=== PATIENT | female | born 1980 | race Hispanic/Latino ===

== ENCOUNTER 2023-04-13 11:36 | Emergency (ER) | payer OTHER ==
--- OUTSIDE RECORDS SUMMARY | 2023-04-13 11:39 | XMS REPORT | Continuity of Care Document ---
:1980 Author Organization [facility] t Address [address] [place] [place] [address] Care Team Providers Name Role Phone Fabio HUGHESJAMESDarioLitzy C Primary Care Physician [phone] RADIOLOGY Attending Clinician Unavailable Cindy SHEARER, Roya K.H. Attending Clinician ROYA WHITE.H. Attending Clinician Unavailable Doctor Unassigned, [place] Attending Clinician Unavailable Lia Domingo RN Attending Clinician Unavailable GLEN OLVERA Attending Clinician Unavailable Glen Mckeon Attending Clinician Odette Duque RN Attending Clinician Unavailable GLEN OLVERA Admitting Clinician Unavailable Payers Payer Name Policy Type Policy Number Effective Date Expiration Date S [place] MEDICAID MARY GRACE PENDING 2020 PENDING 00:00:00 Problems Condition Condition Condition Status Onset Resolution Last Treating Co mments Source Name Details Category Date Date Treatment Clinician Date History of History of Disease Active 2016-07 U tomas depression depression 0-03 it y of 00:00: [place] 00 Medical Branch History of History of Disease Active 2016-07 Kamini marin diabetes diabetes 0-03 ity of mellitus mellitus 00:00: [address] Contracept Contracept Disease Active 2016-07 U nivers angie angie 0-03 [place] [facility] Boil of Boil of Disease Active 2016-07 Univers buttock buttock 0-03 ity of 00:00: [address] Breast Breast Disease Active 2015-07 Univers complaint complaint 0-26 ity of 00:00: [address] Well woman Well woman Disease Active U nivers exam exam 7 ity of 00:00: [address] S/P tubal S/P tubal Disease Active Uni vers ligation ligation 01-25 ity of 00:00: [place] [facility] Obese Obese Disease Active Univers 01-25 ity of 00:00: [address] Allergies, Adverse Reactions, Alerts Allergy Allergy Status Severity Reaction(s) Onset Inactive Treating Comm ents Source Name Type Date Date Clinician NO KNOWN Drug Active Univers ALLERGIE Class ity of S [facility] Social History Social Habit Start Date Stop Date Quantity Comments Source Sexual [facility] to 2020-10-24 2020-11-23 Not sure [facility] SARS-CoV-2 (event) 00:00:00 09:50:00 [facility] History of Social 2020-10-08 2020-10-08 Univers ity of function 00:00:00 00:00:00 [facility] Alcohol intake 2020-06-27 2020-06-27 0 /d University 00:00:00 00:00:00 [facility] Tobacco use and 2016-01-26 2016-01-26 Smokeless Universit y of exposure 00:00:00 00:00:[address] tobacco non-user [facility] Sex Assigned At [birth year] Universit y of 00:00:00 00:00:00 [facility] Smoking Status Start Date Stop Date Source Never smoked tobacco [facility] Medications Ordered Filled Start Stop Current Ordering Indication Dosage Frequency Signature Comments Components Source Medication Medication Date Date Medication? Clinician (SIG) Name Name albuterol 2019- 2020- No 2{puff} 2 Puff, U nivers (VENTOLIN) 2-20 12-20 Inhalation it y of inhaler 2 01:45[place] 00:56 [place] :[place] dose, [facility] 06/27/20 Branch at 1945, AIDAN
Is this order for a patient with suspected or confirmed COVID-19 infection? Yes ibuprofen 2019-07 2020- No 800mg 800 mg, Uni vers (IBU) 2-20 - Oral, ity of tablet 800 00:15: 00:06 ONCE, 1 [place] as mg 00 :00 dose, [facility] 06/27/20 Branch at 1815, AIDAN albuterol 2019-07 Yes [id number] 2{puff} Inhale 2 Univers 90 2-19 Puffs ity of mcg/actuati 00:00: every 4 [place] as on inhaler 00 (four) Medical hours as Branch needed for Wheezing or Shortness of Breath. albuterol 2019-07 Yes [id number] 2{puff} Inhale 2 Univers 90 2-19 Puffs ity of mcg/actuati 00:00: every 4 Hiro as on inhaler 00 (four) Medical hours as Branch needed for Wheezing or Shortness of Breath. albuterol 2019-07 Yes [id number] 2{puff} Inhale 2 Univers 90 2-19 Puffs ity of mcg/actuati 00:00: every 4 Hiro as on inhaler 00 (four) Medical hours as Branch needed for Wheezing or Shortness of Breath. albuterol 2019-07 Yes [id number] 2{puff} Inhale 2 Univers 90 2-19 Puffs ity of mcg/actuati 00:00: every 4 [place] on inhaler 00 (four) Medical hours as Branch needed for Wheezing or Shortness of Breath. albuterol 2019-07 Yes [id number] 2{puff} Inhale 2 Univers 90 2-19 Puffs ity of mcg/actuati 00:00: every 4 [place] as on inhaler 00 (four) Medical hours as Branch needed for Wheezing or Shortness of Breath. albuterol 2019-07 Yes [id number] 2{puff} Inhale 2 Univers 90 2-19 Puffs ity of mcg/actuati 00:00: every 4 [place] as on inhaler 00 (four) Medical hours as Branch needed for Wheezing or Shortness of Breath. benzonatate 2019-07 Yes [id number] 100mg Take 1 Univers 100 mg 2-19 capsule by ity of capsule 00:00: mouth 3 [place] 00 (three) Medical times Branch daily as needed for Cough. ondansetron 2019-07 Yes [id number] 4mg Take 1 Univers (ZOFRAN 2-19 tablet by ity of ODT) 4 mg 00:00: mouth [place] disintegrat 00 every 8 Medic al ing tablet (eight) Branch hours as needed for Nausea and Vomiting (N/V). albuterol 2019-07 Yes [id number] 2{puff} Inhale 2 Univers 90 2-19 Puffs ity of mcg/actuati 00:00: every 4 [place] on inhaler 00 (four) Medical hours as Branch needed for Wheezing or Shortness of Breath. benzonatate 2019-07 Yes [id number] 100mg Take 1 Univers 100 mg 2-19 capsule by ity of capsule 00:00: mouth 3 [place] 00 (three) Medical times Branch daily as needed for Cough. ondansetron 2019-07 Yes [id number] 4mg Take 1 Univers (ZOFRAN 2-19 tablet by ity of ODT) 4 mg 00:00: mouth [place] disintegrat 00 every 8 Medic al ing tablet (eight) Branch hours as needed for Nausea and Vomiting (N/V). albuterol 2019-07 Yes [id number] 2{puff} Inhale 2 Univers 90 2-19 Puffs ity of mcg/actuati 00:00: every 4 [place] as on inhaler 00 (four) Medical hours as Branch needed for Wheezing or Shortness of Breath. benzonatate 2019-07 Yes [id number] 100mg Take 1 Univers 100 mg 2-19 capsule by ity of capsule 00:00: mouth 3 [place] 00 (three) Medical times Branch daily as needed for Cough. ondansetron 2019-07 Yes [id number] 4mg Take 1 Univers (ZOFRAN 2-19 tablet by ity of ODT) 4 mg 00:00: mouth [place] disintegrat 00 every 8 Medic al ing tablet (eight) Branch hours as needed for Nausea and Vomiting (N/V). albuterol 2019-07 Yes [id number] 2{puff} Inhale 2 Univers 90 2-19 Puffs ity of mcg/actuati 00:00: every 4 [place] as on inhaler 00 (four) Medical hours as Branch needed for Wheezing or Shortness of Breath. benzonatate 2019-07 Yes [id number] 100mg Take 1 Univers 100 mg 2-19 capsule by ity of capsule 00:00: mouth 3 [place] 00 (three) Medical times Branch daily as needed for Cough. ondansetron 2019-07 Yes [id number] 4mg Take 1 Univers (ZOFRAN 2-19 tablet by ity of ODT) 4 mg 00:00: mouth [place] disintegrat 00 every 8 Medic al ing tablet (eight) Branch hours as needed for Nausea and Vomiting (N/V). benzonatate 2019-07- No [id number] 100mg Take 1 Univers 100 mg 2-19 04-01 capsule by ity of capsule 00:00: 00:00 mouth 3 [place] 00 :00 (three) Medical times Branch daily as needed for Cough. ondansetron 2019-07- No [id number] 4mg Take 1 Univers (ZOFRAN 2-19 04-01 tablet by ity of ODT) 4 mg 00:00: 00:00 mouth [place] disintegrat 00 :00 every 8 Medic al ing tablet (eight) Branch hours as needed for Nausea and Vomiting (N/V). benzonatate 2019-07- No [id number] 100mg Take 1 Univers 100 mg 2-19 04-01 capsule by ity of capsule 00:00: 00:00 mouth 3 [place] 00 :00 (three) Medical times Branch daily as needed for Cough. ondansetron 2019-07- No [id number] 4mg Take 1 Univers (ZOFRAN 2-19 04-01 tablet by ity of ODT) 4 mg 00:00: 00:00 mouth [place] disintegrat 00 :00 every 8 Medic al ing tablet (eight) Branch hours as needed for Nausea and Vomiting (N/V). benzonatate 2019-07- No [id number] 100mg Take 1 Univers 100 mg 2-19 04-01 capsule by ity of capsule 00:00: 00:00 mouth 3 [place] 00 :00 (three) Medical times Branch daily as needed for Cough. ondansetron 2019-07- No [id number] 4mg Take 1 Univers (ZOFRAN 2-19 04-01 tablet by ity of ODT) 4 mg 00:00: 00:00 mouth [place] disintegrat 00 :00 every 8 Medic al ing tablet (eight) Branch hours as needed for Nausea and Vomiting (N/V). norgestimat Yes [id number] 1{tbl} Take 1 Univers e-ethinyl 1-26 tablet by ity o f estradiol 00:00: mouth [place] 0.18/0.215/ 00 daily. Medica l 0.25 mg-35 Branch mcg (28) tablet norgestimat Yes [id number] 1{tbl} Take 1 Univers e-ethinyl 1-26 tablet by ity o f estradiol 00:00: mouth [place] 0.18/0.215/ 00 daily. Medica l 0.25 mg-35 Branch mcg (28) tablet norgestimat 2017- Yes [id number] 1{tbl} Take 1 Univers e-ethinyl 1-26 tablet by ity o f estradiol 00:00: mouth [place] 0.18/0.215/ 00 daily. Medica l 0.25 mg-35 Branch mcg (28) tablet norgestimat Yes [id number] 1{tbl} Take 1 Univers e-ethinyl 1-26 tablet by ity o f estradiol 00:00: mouth [place] 0.18/0.215/ 00 daily. Medica l 0.25 mg-35 Branch mcg (28) tablet norgestimat Yes [id number] 1{tbl} Take 1 Univers e-ethinyl 1-26 tablet by ity o f estradiol 00:00: mouth [place] 0.18/0.215/ 00 daily. Medica l 0.25 mg-35 Branch mcg (28) tablet norgestimat Yes [id number] 1{tbl} Take 1 Univers e-ethinyl 1-26 tablet by ity o f estradiol 00:00: mouth [place] 0.18/0.215/ 00 daily. Medica l 0.25 mg-35 Branch mcg (28) tablet norgestimat 2020- No [id number] 1{tbl} Take 1 Univers e-ethinyl 1-26 04-01 tablet by ity of estradiol 00:00: 00:00 mouth [place] 0.18/0.215/ 00 :00 daily. Medica l 0.25 mg-35 Branch mcg (28) tablet norgestimat 2020- No [id number] 1{tbl} Take 1 Univers e-ethinyl 08-04- tablet by ity of estradiol 00:00: 00:00 mouth [place] 0.18/0.215/ 00 :00 daily. Medica l 0.25 mg-35 Branch mcg (28) tablet norgestimat 2020- No [id number] 1{tbl} Take 1 Univers e-ethinyl 08-04 tablet by ity of estradiol 00:00: 00:00 mouth [place] 0.18/0.215/ 00 :00 daily. Medica l 0.25 mg-35 Branch mcg (28) tablet Immunizations Ordered Filled Date Status Comments Source Immunization Name Immunization Name [facility] 2016-01-26 Completed University of 00:00:00 [facility] TDAP 2016-01-26 Completed University of 00:00:00 [facility] TDAP 2016-01-26 Completed University of 00:00:00 [facility] TDAP 2016-01-26 Completed University of 00:00:00 [facility] TDAP 2016-01-26 Completed University of 00:00:00 [facility] TDAP 2016-01-26 Completed University of 00:00:00 [facility] TDAP 2016-01-26 Completed University of 00:00:00 [facility] TDAP 2016-01-26 Completed University of 00:00:00 [facility] TDAP 2016-01-26 Completed University of 00:00:00 [facility] TDAP 2016-01-26 Completed University of 00:00:00 [facility] TDAP Unknown Completed [facility] Vital Signs Vital Name Observation Time Observation Value Comments Source Systolic blood 2020-10-08 19:31:00 127 mm[Hg] Univer sity of pressure [facility] Diastolic blood 2020-10-08 19:31:00 83 mm[Hg] Unive rsity of pressure [facility] Heart rate 2020-10-08 19:31:00 83 /min [facility] Respiratory rate 2020-10-08 19:31:00 19 /min Univ ersity of [facility] Body height 2020-10-08 19:31:00 162.6 cm [facility] Body weight 2020-10-08 19:31:00 94.348 kg Universi ty [facility] [place] [facility] [place] BMI 2020-10-08 19:31:00 35.70 kg/m2 Universi ty [facility] Oxygen saturation in 2020-10-08 19:31:00 96 /min University of Arterial blood by [facility] Pulse oximetry Branch Systolic blood 2020-06-28 01:22:00 131 mm[Hg] Univer sity of pressure [facility] Diastolic blood 2020-06-28 01:22:00 90 mm[Hg] Unive rsity of pressure [facility] Respiratory rate 2020-06-28 01:22:00 22 /min [facility] in 2020-06-28 00:57:00 97 /min University Arterial blood by [facility] Pulse oximetry Branch Heart rate 2020-06-28 00:00:00 90 /min [facility] [place] [facility] [place] Body temperature 2020-06-27 22:38:00 38.11 [place] [facility] Body height 2020-06-27 22:38:00 162.6 cm Universi ty [facility] Body weight 2020-06-27 22:38:00 90.719 kg Universi ty [facility] Medical [place] BMI 2020-06-27 22:38:00 34.33 kg/m2 Universi ty [facility] Procedures Procedure Date / Time Performed Performing Clinician Sour e CONSENT/REFUSAL FOR 2020-10-08 19:08:34 Doctor Unassigned, No [facility] [place] DI[facility] AND Name Medical Branch TREATMENT REFERRAL- 2020-07-20 06:01:00 Doctor Unassigned, No Univer [facility] REQUEST/RESPONSE Name Medical Branch ADC,CLC OR LCC ONLY - 2020-06-28 00:12:00 Glen Olvera [facility] INFLUENZA A & B [facility] DIRECT ANTIGEN XR CHEST 1 VW 2020-06-27 23:49:37 Glen Olvera [facility] CONSENT/REFUSAL FOR 2020-06-27 22:25:33 Doctor Unassigned, No [facility] [place] DIAGNOSIS AND Name Medical Branch TREATMENT NOTICE OF PRIVACY 2020-06-27 22:25:08 Doctor Unassigned, No [facility] [place] PRACTICES Name Medical Branch Encounters Start End Encounter Admission Attending Care Care Encounter Source Date/Time Date/Time Type Type Clinicians Facility Department ID 2023-04-13 2023-04-13 Outpatient [facility] [id number] Suresh 09:43:14 09:43:14 [id number] F Ashwin 2023-02-28 2023-02-28 Outpatient [facility] [id number] Suresh 15:24:47 15:24:47 [id number] F Ashwin 2022-06-14 2022-06-14 Outpatient R RADIOLOGY [facility] [id number] Univers 00:00:00 00:00:00 ity of [facility] 2021-01-01 2021-01-01 [facility] [id number] Univers 00:00:00 00:00:00 Management Roya Aguilera [id number] it[id number] [phone] Nm dical nal [address] [place] [address] 2020-11-24 2020-11-24 Telephone Cindy [facility] [id number] Univers 00:00:00 00:00:00 Sendelliott Aguilera [id number] ity [id number] [phone] Nm dic[address] 2020-11-23 2020-11-23 Outpatient R CINDY [facility] [id number] Univers 10:00:00 10:00:00 SENDIL ity [facility] 2020-11-19 2020-11-19 Outpatient R CINDY [facility] [id number] Univers 14:00:00 14:00:00 SENDIL ity [facility] 2020-11-06 2020-11-06 Outpatient R CINDY [facility] [id number] Univers 10:00:00 10:00:00 SENDIL ity [facility] 2020-10-08 2020-10-08 Office Cindy [facility] [id number] Univers 14:10:57 14:57:40 Visit Sendelliott Aguilera [id number] ity [id number] [phone] Nm dical nal 059 [facility] 2020-10-08 2020-10-08 Outpatient Abram WHITE [facility] [id number] Univers 14:00:00 14:00:00 SENDIL [facility] 2020-10-08 2020-10-08 Orders Doctor MARCO ANTONIO [id number] Univers 00:00:00 00:00:00 Only Unassigned, KEYUR [id number] ity of [place] [facility] [id number] [place] as [phone] [address] 2020-08-24 2020-08-24 Outpatient [facility] [id number] Univers 14:00:00 14:00:00 SENDIL [facility] 2020-08-13 2020-08-13 Outpatient Abr[facility] [id number] Univers 14:00:00 14:00:00 SENDIL [facility] 2020-07-20 2020-07-20 Orders Doctor MARCO ANTONIO [id number] Univers 00:00:00 00:00:00 Only Unassigned, KEYUR [id number] ity of [place] [facility] [id number] [place] as [phone] [address] 2020-07-01 2020-07-01 Telephone MARCO ANTONIO Domingo [id number] Univers 00:00:00 00:00:00 Lia KEYUR [id number] it y of HOSPITAL [id number] [place] as [phone] [address] 2020-06-29 2020-06-29 Patient Doctor MARCO ANTONIO [id number] Univers 00:00:00 00:00:00 Secure Msg Unassigned, KEYUR [id number] ity of [place] [facility] [id number] [place] [phone] [address] 2020-06-27 2020-06-27 Emergency X WILFRIDO, [facility] ERT [id number] Univers 16:39:00 20:15:00 GLEN ity of [facility] 2020-06-27 2020-06-27 Emergency Olvera, [facility] [id number] Univers 16:39:00 20:15:00 Glen Aguilera [id number] i ty [id number] [phone] [facility] 084 Branch 2020-06-27 2020-06-27 Nurse MARCO ANTONIO Duque [id number] Univers 00:00:00 00:00:00 Triage Odette BAER [id number] ity of [facility] [id number] [place] as [phone] [facility] 019 Branch 2020-06-27 2020-06-27 Orders Doctor MARCO ANTONIO [id number] Univers 00:00:00 00:00:00 Only Unassigned, KEYUR [id number] ity of [place] [facility] [id number] [place] as [phone] [facility] 009 [place] Results Test Description Test Time Test Comments Results Result Comments Source ADC,CLC OR LCC ONLY - INFLUENZA A & B DIRECT ANTIGEN 2020-06 01:47:00 Test Item Value Reference Range Interpretation Comme nts Influenza A (test code = 68304-9) Negative Negative Influenza B (test code = 50159-2) Negative Negative Lab Interpretation (test code = 73301-2) Normal [facility] 1 [id number] 00:49:03 No acute cardiopulmonary process. Disclaimer: Generally, the findings on chest imaging in COVID-19 are notspecific, and overlap with other infections, including influenza, H1N1,SARS and MERS.Accordingto the Centers for Disease Control (CDC) and recent statement ofthe [employer], viral testing remains the only specificmethod of diagnosis. Confirmation with the viral test is required, even ifradiologic findings are suggestive of COVID-[address]. Preliminary Report Dictated by Resident: Rusty Awan MD., have reviewed this study and agree with the abovereport.PROCEDURE: XR CHEST 1 VW CLINICAL INDICATION: covid TECHNIQUE: Frontal chest radiograph was obtained. COMPARISON: None FINDINGS: Streaky opacities in the left lower lung, likely atelectasis. The lungs areotherwise clear. No pleural effusion or pneumothorax is seen. The heart is normal in size. Noacute bony abnormality is noted. [facility], Radiant Results Inft User - 06/27/2020 6:50 PM CSTPROCEDURE: XR CHEST 1 VWCLINICAL INDICATION: covid TECHNIQUE: Frontal chest radiograph was obtained.COMPARISON: NoneFINDINGS:Streaky opacities in the left lower lung, likely atelectasis. The lungs areotherwise clear. No pleural effusion or pneumothorax is seen. The heart is normal in size.No acute bony abnormality is noted.IMPRESSIONNo acute cardiopulmonary process.Disclaimer: Generally, the findings on chest imaging in COVID-19 are notspecific, and overlap with other infections, including influenza, H1N1,SARS and MERS.According to the Centers for Disease Control (CDC) and recent statement ofthe [employer], viral testing remains the only specificmethod of diagnosis. Confirmation with the viral test is required, even ifradiologic findings are suggestive of COVID- [address]. PreliminaryReport Dictated by Resident: Rusty Silver MD., have reviewed this study and agreewith the abovereport. [facility]
[2023-04-13] MEDS ORDERED: NA CHLORIDE 0.9% 1,000 ML ONE (12:13)
--- NOTE | 2023-04-13 12:21 | RAD REPORT ---
EXAM DESCRIPTION: CT - Head Brain Wo Cont - 04/13/2023 12:06 pm CLINICAL HISTORY: HEADACHE COMPARISON: HEAD BRAIN W O CONTRAST dated 05/20/2011 TECHNIQUE: Noncontrast head CT images were obtained without IV contrast. Multiplanar reformats were generated and reviewed. All CT scans are performed using dose optimization technique as appropriate and may include automated exposure control or mA/KV adjustment according to patient size. FINDINGS: No intracranial hemorrhage, mass, or edema. Midline structures are unremarkable. Normal ventricular caliber for age. Nunez-white matter differentiation is preserved, without evidence of acute infarct. No abnormal extra- axial fluid collections. Mastoid air cells and visualized portions of the paranasal sinuses are clear. No acute bony findings. IMPRESSION: No evidence of an acute intracranial process.
--- NOTE | 2023-04-13 12:21 | RAD REPORT ---
[facility]13 pm CLINICAL HISTORY: CHEST PAIN, hypertension COMPARISON: Chest Single View dated 11/23/2016; CHEST SINGLE VIEW dated 05/20/2011; CHEST SINGLE VIEW dated 09/04/2008; CHEST PA AND LAT 2 VIEW dated 01/14/2004 TECHNIQUE: Portable AP view of the chest. FINDINGS: The lungs are clear. No pneumothorax or effusion. The cardiomediastinal contours are unre markable. IMPRESSION: No acute cardiopulmonary process.
[2023-04-13 12:40] LABS: Absolute Lymphocytes (CBC) 1.6 K/uL (0.7-4.9); Hematocrit 35.9 % (36.0-45.0); Lymphocytes % 21.2 % (15.3-44.8); MCV 73.4 fL (80-100); MPV 9.2 fL (7.6-11.3); Platelets 232 thou/uL (152-406); Protime INR 1.03; RBC Red Blood Cell Count 4.89 M/uL (3.86-4.86)
[2023-04-13 12:42] LABS: Specific Gravity 1.011 (1.005-1.030); Urine Bilirubin NEGATIVE (Negative); Urine Blood Negative (Negative); Urine Clarity Clear (Clear); Urine Color Colorless (Yellow); Urine Glucose NEGATIVE (Negative); Urine Protein NEGATIVE (Negative); Urine Urobilinogen Normal (Normal); Urine pH 6.5 (5.0-7.0)
[2023-04-13 12:43] LABS: Specific Gravity 1.011 (1.005-1.030)
[2023-04-13 13:02] LABS: ALT/SGPT 50 U/L (13-56); AST/SGOT 33 U/L (15-37); Albumin 3.6 g/dL (3.4-5.0); Alkaline Phosphatase 104 U/L (45-117); BUN Blood Urea Nitrogen 14 mg/dL (7-18); Bicarbonate 25 mEq/L (21-32); Bilirubin Total 0.2 mg/dL (0.2-1.0); Glomerular Filtration Rate 100 ml/min (=/>90); Glucose Level 115 mg/dL (74-106); NT PRO-BNP 22 pg/mL (<125); Potassium 3.6 mEq/L (3.5-5.1); Protein, Total 8.1 g/dL (6.4-8.2); Sodium Level 137 mEq/L (136-145)
[2023-04-13 13:03] LABS: Bilirubin Direct < 0.1 mg/dL (0-0.2); Bilirubin Indirect, Calculated ND mg/dL (0.2-0.8)
--- NOTE | 2023-04-13 13:06 | ER ---
Nurse's Notes [facility] Name: Laly Lopez Age: 43 yrs Sex: Female : 1980 Arrival Date: 04/13/2023 Time: 11:36 Bed 13 Private MD: Diagnosis: Essential (primary) hypertension;Weakness Presentation: 04/13 11:44 Chief complaint: Patient states: Sent by urgent care due to high blood pressure, left ld1 eye twitching X 3 days, headache, nausea. Coronavirus screen: At this time, the client does not indicate any symptoms associated with coronavirus-19. Ebola Screen: No symptoms or risks identified at this time. Initial Sepsis Screen: Does the patient meet any 2 criteria? No. Patient's initial sepsis screen is negative. Does the patient have a suspected source of infection? No. Patient's initial sepsis screen is negative. Risk Assessment: Do you want to hurt yourself or someone else? Patient reports no desire to harm self or others. Onset of symptoms was April 13, 2023. 11:44 Method Of Arrival: Ambulatory ld1 11:44 Acuity: ISAI 3 ld1 Triage Assessment: 11:45 General: Appears in no apparent distress. comfortable, Behavior is calm, cooperative, ld1 appropriate for age. Pain: Complains of pain in forehead, left eye and left buddhism Pain does not radiate. Pain currently is 9 out of 10 on a pain scale. Quality of pain is described as throbbing. EENT: No signs and/or symptoms were reported regarding the EENT system. Neuro: Level of Consciousness is awake, alert, obeys commands, Oriented to person, place, time, situation. Cardiovascular: Capillary refill < 3 seconds Patient's skin is warm and dry. Respiratory: Airway is patent Respiratory effort is even, unlabored. GI: Abdomen is round non-distended. : No signs and/or symptoms were reported regarding the genitourinary system. Derm: No signs and/or symptoms reported regarding the dermatologic system. Musculoskeletal: No signs and/or symptoms reported regarding the musculoskeletal system. Historical: - Allergies: 11:42 NKA; ld1 - Home Meds: 11:42 None [Active]; ld1 - PMHx: 11:42 None; ld1 - PSHx: 11:42 section; Tubal ligation; ld1 - Immunization history:: Adult Immunizations Adult Immunizations up to date. - Social history:: Smoking status: Patient denies any tobacco usage or history of. Patient/guardian denies using alcohol. - Family history:: not pertinent. Screenin:47 [facility] ED Fall Risk Assessment (Adult) History of falling in the last 3 months, db including since admission No falls in past 3 months (0 pts) Confusion or Disorientation No (0 pts) Intoxicated or Sedated No (0 pts) Impaired Gait No (0 pts) Mobility Assist Device Used No (0 pt) Altered Elimination No (0 pt) Score/Fall Risk Level 0 - 2 = Low Risk Oriented to surroundings, Maintained a safe environment. Abuse screen: Denies threats or abuse. Denies injuries from another. Nutritional screening: No deficits noted. Tuberculosis screening: No symptoms or risk factors identified. Assessment: 12:47 Reassessment: Patient appears in no apparent distress at this time. Patient and/or db family updated on plan of care and expected duration. Pain level reassessed. Patient is alert, oriented x 3, equal unlabored respirations, skin warm/dry/pink. Patient states feeling better. General: Appears in no apparent distress. comfortable, Behavior is calm, cooperative. Neuro: Level of Consciousness is awake, alert, obeys commands, Oriented to person, place, time, situation. Respiratory: Airway is patent Respiratory effort is even, unlabored, Respiratory pattern is regular, symmetrical. 13:39 Reassessment: PT AMBULATORY TO RESTROOM. db 13:50 Reassessment: Patient appears in no apparent distress at this time. Patient and/or db family updated on plan of care and expected duration. Pain level reassessed. Patient is alert, oriented x 3, equal unlabored respirations, skin warm/dry/pink. 13:50 Reassessment:. db Vital Signs: 11:44 BP 165 / 95; Pulse 83; Resp 18; Temp 98.2(O); Pulse Ox 99% on R/A; Weight 97.52 kg; ld1 Height 5 ft. 4 in. ; Pain 9/10; 12:30 BP 157 / 78; Pulse 78; Resp 18; Pulse Ox 99% on R/A; db 13:30 BP 144 / 83; Pulse 85; Resp 16; Pulse Ox 100% on R/A; db 11:44 Body Mass Index 36.90 (97.52 kg, 162.56 cm) ld1 11:44 Pain Scale: Adult ld1 L[place]kin Coma Score: 12:52 Eye Response: spontaneous(4). Motor Response: obeys commands(6). Verbal Response: ana oriented(5). Total: 15. ED Course: 11:41 Patient arrived in ED. mg5 11:41 Terell Saba MD is Attending Physician. ana 11:45 Triage completed. ld1 11:45 Arm band placed on right wrist. ld1 12:01 Amparo Maza, RN is Primary Nurse. db 12:06 CT Head Brain wo Cont In Process Unspecified. EDMS 12:14 XRAY Chest (1 view) In Process Unspecified. EDMS 12:30 PREGU Sent. bc6 12:30 Urinalysis w/ reflexes Sent. bc6 12:30 Basic Metabolic Panel Sent. bc6 12:30 CBC with Diff Sent. bc6 12:30 LFT's Sent. bc6 12:30 Magnesium Sent. bc6 12:30 PT-INR Sent. bc6 12:30 Troponin HS Sent. bc6 12:30 Inserted saline lock: 20 gauge in left antecubital area, using aseptic technique. Blood bc6 collected. 12:47 Patient has correct armband on for positive identification. Bed in low position. Call db light in reach. Side rails up X 1. 13:50 Provided Education on: DISCHARGE. db 13:50 No provider procedures requiring assistance completed. IV discontinued, intact, db bleeding controlled, No redness/swelling at site. Administered Medications: 12:33 Drug: NS 0.9% IV 500 ml IV at bolus once Route: IV; Rate: bolus; Site: right ld1 antecubital; 14:03 Follow up: Response: No adverse reaction; IV Intake: 500ml db Medication: 12:47 VIS not applicable for this client. db Intake: 14:03 IV: 500ml; Total: 500ml. db Outcome: 13:05 Discharge ordered by . ana 13:50 Discharged to home ambulatory, with family, db 13:50 Condition: stable 13:50 Discharge instructions given to patient, Instructed on discharge instructions, follow up and referral plans. 14:05 Patient left the ED. db Signatures: Dispatcher [employer] EDTN Terell Saba MD MD cha Sims, Lauren, RN RN ld1 Amparo Maza RN RN db Isabella Steward6 [place] 5
--- NOTE | 2023-04-13 13:06 | EDPHYS ---
Physician Documentation [facility] Name: Laly Lopez Age: 43 yrs Sex: Female : 1980 Arrival Date: 04/13/2023 Time: 11:36 Bed 13 Private MD: ED Physician Terell Saba HPI: 04/13 12:49 This 43 yrs old Female presents to ER via Ambulatory with complaints of Sent ana By Urgent Care. 12:49 The patient complains of pain to the left caodaism. The patient describes the headache as ana aching. Onset: The symptoms/episode began/occurred 2 day(s) ago. left eye twitching. Associated signs and symptoms: The patient has no apparent associated signs or symptoms. Severity of symptoms: At its worst the pain was mild, in the emergency department the pain is unchanged. Headache History: The patient has had previous headaches and this one is similar to previous episodes. Onset: The symptoms/episode began/occurred 1 day(s) ago. Severity of symptoms: At their worst the symptoms were mild in the emergency department the symptoms are unchanged. Historical: - Allergies: 11:42 NKA; ld1 - Home Meds: 11:42 None [Active]; ld1 - PMHx: 11:42 None; ld1 - PSHx: 11:42 section; Tubal ligation; ld1 - Immunization history:: Adult Immunizations Adult Immunizations up to date. - Social history:: Smoking status: Patient denies any tobacco usage or history of. Patient/guardian denies using alcohol. - Family history:: not pertinent. ROS: 12:49 Constitutional: Negative for fever, chills, and weight loss, Eyes: Negative for injury, ana pain, redness, and discharge, ENT: Negative for injury, pain, and discharge, Neck: Negative for injury, pain, and swelling, Cardiovascular: Negative for chest pain, palpitations, and edema, Respiratory: Negative for shortness of breath, cough, wheezing, and pleuritic chest pain, Abdomen/GI: Negative for abdominal pain, nausea, vomiting, diarrhea, and constipation, Back: Negative for injury and pain, : Negative for injury, bleeding, discharge, and swelling, MS/Extremity: Negative for injury and deformity, Skin: Negative for injury, rash, and discoloration, Psych: Negative for depression, anxiety, suicide ideation, homicidal ideation, and hallucinations, Allergy/Immunology: Negative for hives, rash, and allergies, Endocrine: Negative for neck swelling, polydipsia, polyuria, polyphagia, and marked weight changes, Hematologic/Lymphatic: Negative for swollen nodes, abnormal bleeding, and unusual bruising, 12:49 Neuro: Positive for headache, Exam: 12:49 Constitutional: This is a well developed, well nourished patient who is awake, alert, ana and in no acute distress. Head/Face: Normocephalic, atraumatic. Eyes: Pupils equal round and reactive to light, extra-ocular motions intact. Lids and lashes normal. Conjunctiva and sclera are non-icteric and not injected. Cornea within normal limits. Periorbital areas with no swelling, redness, or edema. ENT: Nares patent. No nasal discharge, no septal abnormalities noted. Tympanic membranes are normal and external auditory canals are clear. Oropharynx with no redness, swelling, or masses, exudates, or evidence of obstruction, uvula midline. Mucous membranes moist. Neck: Trachea midline, no thyromegaly or masses palpated, and no cervical lymphadenopathy. Supple, full range of motion without nuchal rigidity, or vertebral point tenderness. No Meningismus. Chest/axilla: Normal chest wall appearance and motion. Nontender with no deformity. No lesions are appreciated. Cardiovascular: Regular rate and rhythm with a normal S1 and S2. No gallops, murmurs, or rubs. Normal PMI, no JVD. No pulse deficits. Respiratory: Lungs have equal breath sounds bilaterally, clear to auscultation and percussion. No rales, rhonchi or wheezes noted. No increased work of breathing, no retractions or nasal flaring. Abdomen/GI: Soft, non-tender, with normal bowel sounds. No distension or tympany. No guarding or rebound. No evidence of tenderness throughout. Back: No spinal tenderness. No costovertebral tenderness. Full range of motion. Skin: Warm, dry with normal turgor. Normal color with no rashes, no lesions, and no evidence of cellulitis. MS/ Extremity: Pulses equal, no cyanosis. Neurovascular intact. Full, normal range of motion. Neuro: Awake and alert, GCS 15, oriented to person, place, time, and situation. Cranial nerves II-XII grossly intact. Motor strength 5/5 in all extremities. Sensory grossly intact. Cerebellar exam normal. Normal gait. Psych: Awake, alert, with orientation to person, place and time. Behavior, mood, and affect are within normal limits. 13:05 ECG was reviewed by the Attending Physician. [facility] Vital Signs: 11:44 BP 165 / 95; Pulse 83; Resp 18; Temp 98.2(O); Pulse Ox 99% on R/A; Weight 97.52 kg; ld1 Height 5 ft. 4 in. ; Pain 9/10; 12:30 BP 157 / 78; Pulse 78; Resp 18; Pulse Ox 99% on R/A; db 13:30 BP 144 / 83; Pulse 85; Resp 16; Pulse Ox 100% on R/A; db 11:44 Body Mass Index 36.90 (97.52 kg, 162.56 cm) ld1 11:44 Pain Scale: Adult ld1 Shaheed Coma Score: 12:52 Eye Response: spontaneous(4). Motor Response: obeys commands(6). Verbal Response: ana oriented(5). Total: 15. MDM: 11:41 Patient medically screened. ana 12:52 Differential diagnosis: glaucoma, hypertensive headache, migraine, subdural hematoma, ana temporal arteritis, tension headache, trigeminal neuralgia. Differential Diagnosis altered mental status, sepsis. Data reviewed: vital signs, nurses notes. Consideration of Admission/Observation Escalation of care including admission/observation considered. I considered the following discharge prescriptions or medication management in the emergency department Medications were administered in the Emergency Department. See MAR. Test considered but Not performed: MRI: no MRI BRAIN. 04/13 11:51 Order name: Basic Metabolic Panel; Complete Time: 13:04 [facility] 04/13 11:51 Order name: CBC with Diff; Complete Time: 12:46 [facility] 04/13 11:51 Order name: LFT's; Complete Time: 13:04 [facility] 04/13 11:51 Order name: Magnesium; Complete Time: 13:04 [facility] 04/13 11:51 Order name: NT PRO-BNP; Complete Time: 13:04 [facility] 04/13 11:51 Order name: PT-INR; Complete Time: 12:46 [facility] 04/13 11:51 Order name: Troponin HS; Complete Time: 13:04 [facility] 04/13 11:51 Order name: Urinalysis w/ reflexes; Complete Time: 12:46 [facility] 04/13 11:51 Order name: PREGU; Complete Time: 12:46 [facility] 04/13 12:53 Order name: CREATININE WHOLE BLOOD; Complete Time: 13:03 EDMS 04/13 11:51 Order name: XRAY Chest (1 view); Complete Time: 12:46 [facility] 04/13 11:51 Order name: CT Head Brain wo Cont; Complete Time: 12:46 [facility] 04/13 11:51 Order name: EKG; Complete Time: 11:52 [facility] 04/13 11:51 Order name: Cardiac monitoring; Complete Time: 11:59 [facility] 04/13 11:51 Order name: EKG - Nurse/Tech; Complete Time: 11:59 [facility] 04/13 11:51 Order name: IV Saline Lock; Complete Time: 12:31 [facility] 04/13 11:51 Order name: Labs collected and sent; Complete Time: 12:31 [facility] 04/13 11:51 Order name: O2 Per Protocol; Complete Time: 11:59 [facility] 04/13 11:51 Order name: O2 Sat Monitoring; Complete Time: 11:59 [facility] EC:05 Rate is 80 beats/min. Rhythm is regular. QRS [place] is Normal. AR interval is normal. QRS ana interval is normal. QT interval is normal. No Q waves. T waves are Normal. No ST changes noted. Clinical impression: NSR w/ Non-specific ST/T Changes and No evidence of ischemia. Interpreted by me. Reviewed by me. Administered Medications: 12:33 Drug: NS 0.9% IV 500 ml IV at bolus once Route: IV; Rate: bolus; Site: right ld1 antecubital; 14:03 Follow up: Response: No adverse reaction; IV Intake: 500ml db Disposition Summary: 04/13/23 13:05 Discharge Ordered Notes: Location: Home ana Problem: new ana Symptoms: have improved ana Condition: Stable ana Diagnosis - Essential (primary) hypertension ana - Weakness ana Followup: ana - With: Private Physician - When: 2 - 3 days - Reason: Recheck today's complaints, Continuance of care, Re-evaluation by your physician Discharge Instructions: - Discharge Summary Sheet ana - Hypertension, Adult ana - Weakness ana - Hypertension, Adult, [id number] ana - How to Take Your Blood Pressure, [id number] ana - Weakness, [id number] ana - Managing Your Hypertension ana Forms: - Medication Reconciliation Form ana - Thank You Letter ana - Antibiotic Education ana - Prescription Opioid Use ana - Patient Portal Instructions ana - Leadership Thank You Letter ana Signatures: Dispatcher [employer] Terell Bustillos MD MD cha Sims, Lauren RN RN ld1 Amparo Maza RN db
[2023-04-13 14:09] VITALS: TEMP 98.2
[2023-04-13 14:12] VITALS: BP 144/83; O2SAT 100
--- NOTE | 2023-04-13 16:56 | EKG ---
Test Date: 2023-04-13 Test Time: 11:53:24 [employer]: VERA MEASUREMENT RESULTS: Intervals: Rate: 80 AR: 138 QRSD: 88 QT: 374 QTc: 431 [place]: P: 38 AR: 138 QRS: 12 T: 4 INTERPRETIVE STATEMENTS: Normal sinus rhythm Cannot rule out Anterior infarct, age undetermined Abnormal ECG Compared to ECG 11/23/2016 15:05:51 Myocardial infarct finding now present Electronically Signed On 04-13-23 16:55:40 CDT by Babar Diallo
== END 2023-04-13 14:05 | disposition home or self-care (01) ==
LOC: ER 11:36
DX: I10 Essential (primary) hypertension (principal); R53.1 Weakness
CPT/HCPCS: 93005; 85025; 80048; 36415; 83735; 81025; 85610; 82565; 80076; 81003; 84484; 83880; 70450; 71045; 99284; J7030